=== PATIENT | male | born 1955 | race Caucasian/White ===

== ENCOUNTER 2018-08-22 11:55 | Emergency (ER) | payer MEDICARE, MEDICAID ==
[~2018-08-22] VITALS: Ht 182.9 cm; Wt 62.2 kg
[~2018-08-22 11:55] MED LIST: TRAM50TA2 PO; otc allergy med
[2018-08-22 12:36] VITALS: BP 145/86
[2018-08-22] MEDS ORDERED: IBUP-1985 PO (14:17)
[2018-08-22] MEDS ORDERED: ketorolac tromethamine 15mg/ml inj. IM ONE (14:20)
[2018-08-22] MEDS ORDERED: HYDR-3965 PO (14:33)
== END 2018-08-22 14:35 | disposition home or self-care (01) ==
LOC: ER 11:56
DX: S20.212A Contusion of left front wall of thorax, initial encounter (principal); F12.90 Cannabis use, unspecified, uncomplicated; Z98.890 Other specified postprocedural states; Z79.899 Other long term (current) drug therapy; W00.0XXA Fall on same level due to ice and snow, initial encounter; Y93.89 Activity, other specified; Y92.89 Other specified places as the place of occurrence of the external cause; Y99.8 Other external cause status
CPT/HCPCS: 71101; 96372; 99284; J1885

== ENCOUNTER 2023-11-06 23:44 | Emergency (ER) | payer BC, MEDICAID ==
[~2023-11-06] VITALS: Ht 182.9 cm; Wt 61.4 kg
[~2023-11-06 23:44] MED LIST changes: +IBUP-1985 PO
[2023-11-07 00:05] VITALS: BP 151/75; PULSE 70; RESP 16; TEMP 98.5; O2SAT 98
[2023-11-07 01:04] LABS: ALBUMIN 3.9 G/DL (3.4-5.0); ANION GAP 9 (8-16); BLOOD UREA NITROGEN 28 MG/DL (7-18); BUN/CREATININE RATIO 20.9 (10.0-20.0); CALCIUM 8.5 MG/DL (8.5-10.1); CHLORIDE 107 MMOL/L (99-107); CREATININE 1.34 MG/DL (0.60-1.10); GLUCOSE 141 MG/DL (70-104); POTASSIUM 3.8 MMOL/L (3.5-5.1); SODIUM 142 MMOL/L (135-145); TOTAL CARBON DIOXIDE 26.1 MMOL/L (24-32); eCRCL 45 ML/MIN; eGFR 53 ML/MIN
[2023-11-07 01:10] LABS: BASOPHILS % (AUTO) 0.3 % (0-1); EOSINOPHILS # (AUTO) 0.1 X10'3 (0-0.9); EOSINOPHILS % (AUTO) 0.4 % (0-6); HEMATOCRIT 41.7 % (42.0-52.0); HEMOGLOBIN 13.9 g/dl (14.0-17.9); LYMPHOCYTES # (AUTO) 0.9 X10'3 (1.1-4.8); LYMPHOCYTES % (AUTO) 6.4 % (21-51); MEAN CORPUSCULAR HEMOGLOBIN 29.1 PG (27.0-31.0); MEAN CORPUSCULAR HGB CONC 33.4 g/dL (33.0-36.5); MEAN PLATELET VOLUME 8.9 FL (7.4-10.4); MONOCYTES % (AUTO) 6.9 % (2-12); NEUTROPHILS # (AUTO) 12.5 X10'3 (1.8-7.7); PLATELET COUNT 263 X10'3 (140-440); RED BLOOD COUNT 4.79 X10'6 (4.70-6.10); RED CELL DISTRIBUTION WIDTH 14.7 % (11.5-14.5); WHITE BLOOD COUNT 14.5 X10'3 (4.5-11.0)
[2023-11-07 01:32] LABS: PROTHROMBIN TIME 10.9 SECONDS (9.0-12.0)
[2023-11-07] MEDS ORDERED: OFLO5DRO RIGHTEYE (02:14)
[2023-11-07] MEDS: TETanus/Pertussis (Acell)/Diphther VAC/PF (Tdap-Adult) 0.5ml syringe IMVAC ONE (02:21)
[2023-11-07] MEDS: ibuprofen tablet 400 MG TABLET PO ONE (02:30)
[2023-11-07] MEDS: bacitracin 15gm ointment TP ONE (02:30)
[2023-11-07] MEDS: acetaminophen 325mg tablet PO ONE (02:30)
[2023-11-07] MEDS: ofloxacin 0.33% 5ml ophthalmic drops RIGHTEYE SCH (02:35)
[2023-11-07] MEDS ORDERED: CEPH-585 PO (02:39)
[2023-11-07] MEDS: cephalexin 250mg capsule PO ONE (02:47)
== END 2023-11-07 02:57 | disposition home or self-care (01) ==
LOC: ER 23:45
DX: S41.112A Laceration without foreign body of left upper arm, initial encounter (principal); S05.8X1A Other injuries of right eye and orbit, initial encounter; F12.10 Cannabis abuse, uncomplicated; Z79.899 Other long term (current) drug therapy; Y04.8XXA Assault by other bodily force, initial encounter; Y93.72 Activity, wrestling; Y92.89 Other specified places as the place of occurrence of the external cause; Y99.8 Other external cause status
CPT/HCPCS: 36415; 70450; 70486; 72125; 80048; 85025; 85610; 90471; 90715; 99285; A6222; A6223; 99284; A6402; A6410; A6449